=== PATIENT | female | born 1945 | race Two or more races ===

== ENCOUNTER 2018-02-01 08:16 | Outpatient (CLI) | payer OTHER | END 2018-02-01 08:30 | disposition home or self-care (01) | LOC: NUCLEAR 08:16 | DX: I11.9 Hypertensive heart disease without heart failure (principal); E03.8 Other specified hypothyroidism; I25.10 Atherosclerotic heart disease of native coronary artery without angina pectoris; R07.89 Other chest pain; R06.02 Shortness of breath | CPT/HCPCS: 78452; 93017; A9500; J0153 ==

== ENCOUNTER → 2018-05-24 | Emergency (ER) | payer OTHER ==
[~2018-05-24] VITALS: Ht 160 cm; Wt 93.4 kg
[~2018-05-24] MED LIST: CIPRO250 MG; LOSARTAN-HCTZ1 EAC1; TOPROL XL50 M1; WAL-TUSSIN100 MG/51
== END | disposition home or self-care (01) ==
LOC: ER 15:17
DX: B34.9 Viral infection, unspecified (principal)

== ENCOUNTER 2018-06-06 14:41 | Outpatient (CLI) | payer OTHER | END 2018-06-06 17:00 | disposition home or self-care (01) | LOC: RAD 14:41 | DX: J01.90 Acute sinusitis, unspecified (principal); J18.8 Other pneumonia, unspecified organism; J32.8 Other chronic sinusitis ==

== ENCOUNTER 2018-08-01 12:30 | Outpatient (CLI) | payer OTHER | END 2018-08-01 14:27 | disposition home or self-care (01) | LOC: TOM 12:30 | DX: R91.8 Other nonspecific abnormal finding of lung field (principal) ==

== ENCOUNTER 2018-10-21 15:54 | Outpatient (CLI) | payer OTHER | END 2018-10-21 16:15 | disposition home or self-care (01) | LOC: LAB 15:54 | DX: E03.8 Other specified hypothyroidism (principal) ==

== ENCOUNTER 2018-10-23 09:35 | Outpatient (CLI) | payer OTHER | END 2018-10-23 09:41 | disposition home or self-care (01) | LOC: SONOGRAMA 09:35 → MAMO-SONO 10:15 | DX: E04.2 Nontoxic multinodular goiter (principal) ==

== ENCOUNTER 2020-11-23 08:00 | Outpatient (CLI) | payer OTHER | END 2020-11-23 08:30 | disposition home or self-care (01) | LOC: PPH VACUNA 08:00 | PROVIDERS: ATTEND Emergency Medicine Pediatric Emergency Medicine | DX: Z23 Encounter for immunization (principal) ==

== ENCOUNTER 2021-01-11 14:59 | Inpatient (IN) | payer OTHER ==
[~2021-01-11] VITALS: Ht 160 cm; Wt 63.5 kg
--- NOTE | 2021-01-11 15:18 | NUR ---
SE RECIBE PTE ALERTA, ORIENTADA EN DAVID SCOTT ESFERAS. PTE REFERIDA POR DR.MARCUS HARP PARA SER TRANSFUNDIDA YA QUE LA MISMA TUVO CAROLYNN MEDICA CON EL HOY Y DECIDIO QUE DEBIA ACUDIR A LA MAGDA DE EMERGENCIAS.
--- NOTE | 2021-01-11 16:22 | NUR ---
SE REALIZA LLAMADA A BANCO DE JULIO AL MOMENTO SE LOGRA CONTACTO CON [facility]. MOUZON CUAL NOTIFICA PACIENTE NO CUENTA CON EXPEDIENTE PREVIO EN BANCO DE JULIO.
--- NOTE | 2021-01-11 16:58 | NUR ---
SE EJECUTA ORDEN MEDICA EN STRONG TOTALIDAD, PACIENTE AL MOMENTO SE LE REALIZA CANALIZACION DE VENA SE REALIZA ORDEN DE REQUIZAR 2 UNIDADES PARA TRANFUNDIR COMPLETAS. PACIENTE SE LE MAGGIE TERCER TUBO YA QUE NO CUENTA CON EXPEDIENTE EN BANCO DE JULIO. PACIENTE AL MOMENTO SE MANTIENE EN ESPERA DE TRANFUNDIR UNIDADES DE JULIO. PACIENTE EN [id number] DE FAMILIAR.
--- NOTE | 2021-01-11 17:02 | NUR ---
SE NOTIFICA A MOLLY. CE RODRIGUESCO DE JLUIO ORDEN MEDICA DE 2 UNICADES PARA TRANFUNDIR PRBC. ORDEN FUE NOTIFICADA.
== END 2021-01-24 21:30 | disposition home or self-care (01) | DRG 840 ==
LOC: ER 14:59 → SEC-K 16:32 → ICU-2 01-12 16:32 → SEC-K 01-13 17:07 → MEDJ 01-13 20:45
PROVIDERS: ADMIT Specialist; ATTEND Specialist
PROC: 5A09457 Assistance with Respiratory Ventilation, 24-96 Consecutive Hours, Continuous Positive Airway Pressure (ICD-10-PCS; principal; 2021-01-12)
PROC: 4A033R1 Measurement of Arterial Saturation, Peripheral, Percutaneous Approach (ICD-10-PCS; 2021-01-12)
PROC: 30233N1 Transfusion of Nonautologous Red Blood Cells into Peripheral Vein, Percutaneous Approach (ICD-10-PCS; 2021-01-12)
PROC: 8E0ZXY6 Isolation (ICD-10-PCS; 2021-01-13)
PROC: 4A12X4Z Monitoring of Cardiac Electrical Activity, External Approach (ICD-10-PCS; 2021-01-14)
PROC: 3E0F7SF Introduction of Other Gas into Respiratory Tract, Via Natural or Artificial Opening (ICD-10-PCS; 2021-01-14)
DX: C83.73 Burkitt lymphoma, intra-abdominal lymph nodes (principal); J96.01 Acute respiratory failure with hypoxia; J95.84 Transfusion-related acute lung injury (TRALI); N39.0 Urinary tract infection, site not specified; M06.9 Rheumatoid arthritis, unspecified; Z20.822 Contact with and (suspected) exposure to COVID-19; D63.0 Anemia in neoplastic disease; E87.71 Transfusion associated circulatory overload; Y84.8 Other medical procedures as the cause of abnormal reaction of the patient, or of later complication, without mention of misadventure at the time of the procedure

== ENCOUNTER 2021-08-25 16:09 | Emergency (ER) | payer OTHER ==
[~2021-08-25] VITALS: Ht 162.6 cm; Wt 58.5 kg
[2021-08-25] MEDS ORDERED: LEVOTHYROXINE25 MCG PO (16:22)
== END 2021-08-25 21:18 | disposition home or self-care (01) ==
LOC: ER 16:09
DX: U07.1 COVID-19 (principal); J90 Pleural effusion, not elsewhere classified; Z88.0 Allergy status to penicillin; I10 Essential (primary) hypertension; Z85.9 Personal history of malignant neoplasm, unspecified

== ENCOUNTER 2021-09-06 14:58 | Inpatient (IN) | payer OTHER ==
[~2021-09-06] VITALS: Ht 152.4 cm; Wt 63.5 kg
[~2021-09-06 14:58] MED LIST changes: +LEVOTHYROXINE25 MCG PO
--- NOTE | 2021-09-06 15:16 | NUR ---
SE RECIBE PTE EN AMBULANCIA PARAMEDICOS REFIEREN QUE LA PTE ETIENE FIEBRE ,TOS,CONGESTION NASAL,REFIERE QUE EL FAMILIRA LE INDICO QUE LA PTE ESTA MUY DISTRAIDA,ES PTE DEL DR.MARCUS HARP EL CUAL LA REFIERE A LA MAGDA DE ER.,LLEGO CANALIZADA CON ANGIO 20,MANO RT CON UN 0.9%
--- NOTE | 2021-09-06 16:27 | NUR ---
RN SOSA ORIENTA A PTE SOBRE TRATAMIENTO A SEGUIR, FELIPE REFIERE ENTENDER. LE COLECTA MUESTRAS, LA CANALIZA Y LE ADMINISTRA MEDICAMENTO MIKAYLA ORDEN MEDICA UTILIZANDO MEDIDAS ASEPTICAS. PENDIENTE MCKENZIE X Y U/A
--- NOTE | 2021-09-06 23:14 | NUR ---
SE RECIBE PTE FEMENINA DE 75 YRS ALERTA CONCIENTE Y TRANQUILA EN COMPANIA DE FAMILIAR. PTE EN CAMA EN LA UNIDAD DE COPVIF SEC KPTE CON .96NSS A 150 ML HRS Y CONSULTADA CON EL ,PEPE RAIN/. SE MANTIENE BAJO OBSERVAICON .
== END 2021-10-05 22:25 | disposition expired | DRG 177 ==
LOC: ER 14:58 → MEDJ 23:19 → ICU 09-16 22:04 → MEDJ 10-04 06:12 → ICU 10-04 08:06 → MEDJ 10-04 22:12
PROVIDERS: ADMIT Specialist; ATTEND Specialist
PROC: 8E0ZXY6 Isolation (ICD-10-PCS; principal; 2021-09-06)
PROC: 30243L1 Transfusion of Nonautologous Fresh Plasma into Central Vein, Percutaneous Approach (ICD-10-PCS; 2021-09-08)
PROC: 30243K1 Transfusion of Nonautologous Frozen Plasma into Central Vein, Percutaneous Approach (ICD-10-PCS; 2021-09-08)
PROC: 30243N1 Transfusion of Nonautologous Red Blood Cells into Central Vein, Percutaneous Approach (ICD-10-PCS; 2021-09-08)
PROC: 4A12X4Z Monitoring of Cardiac Electrical Activity, External Approach (ICD-10-PCS; 2021-09-12)
PROC: 30243R1 Transfusion of Nonautologous Platelets into Central Vein, Percutaneous Approach (ICD-10-PCS; 2021-09-13)
PROC: 0W9B30Z Drainage of Left Pleural Cavity with Drainage Device, Percutaneous Approach (ICD-10-PCS; 2021-09-15)
PROC: 0W9930Z Drainage of Right Pleural Cavity with Drainage Device, Percutaneous Approach (ICD-10-PCS; 2021-09-15)
PROC: 02HV33Z Insertion of Infusion Device into Superior Vena Cava, Percutaneous Approach (ICD-10-PCS; 2021-09-21)
PROC: B548ZZA Ultrasonography of Superior Vena Cava, Guidance (ICD-10-PCS; 2021-09-21)
PROC: 0W9B30Z Drainage of Left Pleural Cavity with Drainage Device, Percutaneous Approach (ICD-10-PCS; 2021-09-21)
PROC: 30243M1 Transfusion of Nonautologous Plasma Cryoprecipitate into Central Vein, Percutaneous Approach (ICD-10-PCS; 2021-09-25)
DX: U07.1 COVID-19 (principal); J12.82 Pneumonia due to coronavirus disease 2019; J18.0 Bronchopneumonia, unspecified organism; I21.A1 Myocardial infarction type 2; D65 Disseminated intravascular coagulation [defibrination syndrome]; C85.90 Non-Hodgkin lymphoma, unspecified, unspecified site; D68.9 Coagulation defect, unspecified; N39.0 Urinary tract infection, site not specified; G93.49 Other encephalopathy; I50.22 Chronic systolic (congestive) heart failure; F05 Delirium due to known physiological condition; I11.0 Hypertensive heart disease with heart failure; D63.8 Anemia in other chronic diseases classified elsewhere; U09.9 Post COVID-19 condition, unspecified; E80.6 Other disorders of bilirubin metabolism; E03.9 Hypothyroidism, unspecified; Z95.828 Presence of other vascular implants and grafts
CPT/HCPCS: 70496; 71275